=== PATIENT | female | born 1950 | race Native Hawaiian/Other Pacific Islander ===

== ENCOUNTER 2016-12-13 11:58 | Outpatient (CLI) | payer OTHER ==
[~2016-12-13 11:58] MED LIST: ALLO100T22 PO; ALLO300T23 PO; ALPR0.2566; AMBIEN5 MG PO; AMLO2.5T PO; AMLO5TAB PO; ASPIRIN81 M1 PO; CLOBETASOL0.054 TOP; DIOVAN320 MG PO; DIPHEN/ATROP2.5 MG PO; GLIP10TA55 PO; HYDR25TA15 PO; LEXAPRO10 MG PO; LOMOTIL2.5 MG PO; LORTAB1 TAB PO; METF500T PO; NEXIUM40 M1; NEXIUM40 M1 PO; PANT40TA PO; PRISTIQ50 MG PO; PROMETHAZINE25 MG PO; PYRIDIUM200 MG PO; TIZA4TAB5 PO; TRAM50TA PO; TRAMADOL HCL100 M1 PO; ZOLP10TA2; ZOLP10TA2 PO; [UNRECOGNIZED DRUG - OTHER] PO
[2016-12-13 12:34] LABS: POTASSIUM 3.3 mmol/L (3.6-5.2); SODIUM 140 mmol/L (136-145)
== END 2016-12-13 19:27 | disposition home or self-care (01) ==
LOC: LABW 11:58
PROVIDERS: Student in an Organized Health Care Education/Training Program
DX: E87.6 Hypokalemia (principal)
CPT/HCPCS: 36415; 80053

== ENCOUNTER 2017-01-24 16:43 | Outpatient (CLI) | payer OTHER | END 2017-01-24 19:21 | disposition home or self-care (01) | LOC: RAD 16:43 | DX: M25.532 Pain in left wrist (principal) ==

== ENCOUNTER 2017-02-07 14:49 | Outpatient (CLI) | payer OTHER ==
[2017-02-07 14:55] VITALS: BP 137/77; TEMP 98.2
== END 2017-02-07 16:55 | disposition home or self-care (01) ==
LOC: INF 14:49
DX: N39.0 Urinary tract infection, site not specified (principal); K75.81 Nonalcoholic steatohepatitis (NASH)
CPT/HCPCS: 96372; J1580

== ENCOUNTER 2017-02-08 13:50 | Outpatient (CLI) | payer OTHER ==
[~2017-02-08] VITALS: Ht 160 cm; Wt 80.7 kg
[2017-02-08 14:28] VITALS: BP 125/62; TEMP 98.9
[2017-02-08 14:52] LABS: POTASSIUM 3.7 mmol/L (3.6-5.2); SODIUM 142 mmol/L (136-145)
[2017-02-08 15:01] LABS: PLATELET COUNT 109 K/uL (152-353)
== END 2017-02-08 15:04 | disposition home or self-care (01) ==
LOC: INF 13:50
PROVIDERS: Internal Medicine
DX: N39.0 Urinary tract infection, site not specified (principal); K75.81 Nonalcoholic steatohepatitis (NASH)
CPT/HCPCS: 36415; 80053; 82784; 83516; 85027; 85610; 86039; 86706; 86803; 87340; 96372; J1580

== ENCOUNTER 2017-02-09 14:52 | Outpatient (CLI) | payer OTHER ==
[~2017-02-09] VITALS: Ht 160 cm; Wt 80.7 kg
[2017-02-09 14:58] VITALS: BP 137/72; TEMP 98.7
== END 2017-02-09 19:23 | disposition home or self-care (01) ==
LOC: INF 14:52
DX: N39.0 Urinary tract infection, site not specified (principal)
CPT/HCPCS: 96372; J1580

== ENCOUNTER 2017-02-24 15:03 | Outpatient (CLI) | payer OTHER ==
[~2017-02-24] VITALS: Ht 160 cm; Wt 80.7 kg
[2017-02-24 14:58] VITALS: BP 145/71; TEMP 98.3
== END 2017-02-24 17:00 | disposition home or self-care (01) ==
LOC: INF 15:03
DX: N10 Acute pyelonephritis (principal); N39.0 Urinary tract infection, site not specified
CPT/HCPCS: 96372; J1580

== ENCOUNTER 2017-02-25 11:31 | Outpatient (CLI) | payer OTHER ==
[~2017-02-25] VITALS: Ht 160 cm; Wt 80.7 kg
[2017-02-25 11:47] VITALS: BP 118/70; TEMP 98.3
== END 2017-02-25 19:28 | disposition home or self-care (01) ==
LOC: INF 11:31
DX: N10 Acute pyelonephritis (principal); N39.0 Urinary tract infection, site not specified
CPT/HCPCS: 96372; J1580

== ENCOUNTER 2017-02-26 17:58 | Outpatient (CLI) | payer OTHER | END 2017-02-26 19:02 | disposition home or self-care (01) | LOC: INF 17:58 | DX: N10 Acute pyelonephritis (principal); N39.0 Urinary tract infection, site not specified | CPT/HCPCS: 96372; J1580 ==

== ENCOUNTER 2017-02-27 13:14 | Outpatient (CLI) | payer OTHER | END 2017-02-27 19:07 | disposition home or self-care (01) | LOC: INF 13:14 | DX: N10 Acute pyelonephritis (principal); N39.0 Urinary tract infection, site not specified | CPT/HCPCS: 96372; J1580 ==

== ENCOUNTER 2017-02-28 15:45 | Outpatient (CLI) | payer OTHER ==
[2017-02-28 16:05] VITALS: BP 144/69; TEMP 98
== END 2017-02-28 16:00 | disposition home or self-care (01) ==
LOC: INF 15:45
DX: N39.0 Urinary tract infection, site not specified (principal); N12 Tubulo-interstitial nephritis, not specified as acute or chronic
CPT/HCPCS: 96372; J1580

== ENCOUNTER 2017-03-30 12:21 | Outpatient (CLI) | payer OTHER ==
[2017-03-30 12:48] LABS: PLATELET COUNT 123 K/uL (152-353)
[2017-03-30 13:18] LABS: POTASSIUM 4.6 mmol/L (3.6-5.2)
== END 2017-03-30 13:30 | disposition home or self-care (01) ==
LOC: LABW 12:21
PROVIDERS: Internal Medicine Hematology & Oncology
DX: D64.89 Other specified anemias (principal); R79.0 Abnormal level of blood mineral
CPT/HCPCS: 36415; 80053; 82728; 83540; 83550; 85027

== ENCOUNTER 2017-06-23 14:35 | Outpatient (CLI) | payer OTHER ==
[~2017-06-23] VITALS: Ht 160 cm; Wt 81.6 kg
[2017-06-23 14:50] VITALS: BP 144/77; TEMP 98.4
[2017-06-23 15:11] VITALS: BP 162/83
== END 2017-06-23 15:55 | disposition home or self-care (01) ==
LOC: INF 14:35
DX: N39.0 Urinary tract infection, site not specified (principal)
CPT/HCPCS: 96365; J1580

== ENCOUNTER 2017-06-24 14:23 | Outpatient (CLI) | payer OTHER ==
[~2017-06-24] VITALS: Ht 160 cm; Wt 81.6 kg
== END 2017-06-24 19:11 | disposition home or self-care (01) ==
LOC: INF 14:23
DX: N39.0 Urinary tract infection, site not specified (principal)
CPT/HCPCS: 96365; J1580

== ENCOUNTER 2017-07-05 15:10 | Outpatient (CLI) | payer OTHER ==
[2017-07-05 15:40] LABS: PLATELET COUNT 112 K/uL (152-353)
[2017-07-05 16:11] LABS: POTASSIUM 3.9 mmol/L (3.6-5.2)
== END 2017-07-05 16:10 | disposition home or self-care (01) ==
LOC: LABW 15:10
PROVIDERS: Internal Medicine Hematology & Oncology
DX: N39.0 Urinary tract infection, site not specified (principal); D50.8 Other iron deficiency anemias
CPT/HCPCS: 36415; 80053; 82728; 83540; 83550; 85027; 87077; 87086; 87088; 87186

== ENCOUNTER 2017-07-29 11:46 | Outpatient (CLI) | payer OTHER | END 2017-07-29 19:00 | disposition home or self-care (01) | LOC: US 11:46 | DX: R60.0 Localized edema (principal); R06.09 Other forms of dyspnea ==

== ENCOUNTER 2017-09-04 10:20 | Emergency (ER) | payer OTHER ==
[~2017-09-04] VITALS: Ht 172.7 cm; Wt 81.6 kg
[2017-09-04 10:38] VITALS: BP 131/64; TEMP 98.3
[2017-09-04 11:56] LABS: PLATELET COUNT 115 K/uL (152-353)
[2017-09-04 12:02] LABS: POTASSIUM 3.7 mmol/L (3.6-5.2)
== END 2017-09-04 12:55 | disposition home or self-care (01) ==
LOC: ED 10:20
PROVIDERS: Specialist
DX: S80.11XA Contusion of right lower leg, initial encounter (principal); I83.91 Asymptomatic varicose veins of right lower extremity; I80.3 Phlebitis and thrombophlebitis of lower extremities, unspecified; W18.39XA Other fall on same level, initial encounter; Y92.89 Other specified places as the place of occurrence of the external cause
CPT/HCPCS: 80048; 85027; 96372; 99283; J1885

== ENCOUNTER 2017-10-24 11:43 | Outpatient (CLI) | payer OTHER | END 2017-10-24 20:26 | disposition home or self-care (01) | LOC: INF 11:43 → RAD 11:43 | DX: L03.115 Cellulitis of right lower limb (principal); R60.0 Localized edema; M79.89 Other specified soft tissue disorders ==

== ENCOUNTER 2017-11-15 12:01 | Outpatient (CLI) | payer OTHER ==
[2017-11-15 12:32] LABS: PLATELET COUNT 131 K/uL (152-353)
[2017-11-15 12:55] LABS: POTASSIUM 3.7 mmol/L (3.6-5.2)
== END 2017-11-15 19:56 | disposition home or self-care (01) ==
LOC: LABW 12:01
PROVIDERS: Internal Medicine Hematology & Oncology
DX: D64.89 Other specified anemias (principal); K74.69 Other cirrhosis of liver
CPT/HCPCS: 36415; 80053; 82728; 83540; 83550; 85027

== ENCOUNTER 2018-01-13 09:01 | Inpatient (IN) | payer OTHER ==
[~2018-01-13] VITALS: Ht 160 cm; Wt 83.6 kg
[2018-01-13] VITALS (35 sets, daily range): BP systolic 83–191; BP diastolic 50–101; TEMP 98–98.8; Ht 160 cm; Wt 83.6 kg
[2018-01-13 10:10] LABS: PLATELET COUNT 133 K/uL (152-353)
[2018-01-13 10:18] LABS: POTASSIUM 3.4 mmol/L (3.6-5.2); SODIUM 140 mmol/L (136-145)
[2018-01-13] MEDS ORDERED: PRISTIQ25 MG PO (17:52)
[2018-01-13] MEDS ORDERED: KP FOLIC ACID1 MG PO (17:53)
[2018-01-13] MEDS ORDERED: POTASSIUM CHLO20 ME1 PO (17:56)
[2018-01-13] MEDS ORDERED: KLOR-CON M1010 MEQ PO (18:10)
[2018-01-13] MEDS ORDERED: ALLO300T23 PO (18:12)
[2018-01-13] MEDS ORDERED: ELIQUIS5 MG PO (18:14)
[2018-01-13] MEDS ORDERED: VITAMIN D2400 UNIT OR (18:16)
--- NOTE | 2018-01-13 23:53 | NUR ---
01-13-181999 PT ASSESSMENT COMPLETE. ASSISTED PT TO [facility] [place],SHE HAS A LARGE, LOOSE, BROWN BM AND VOIDS. PT ASSISTED BACK INTO BED. SHE REMAINS IN A FIB, WITH CARDIZEM 5 MG/HR INFUSING WITH NS AT 50 CC/ HR. PT DENIES PAIN AT THIS TIME.
[2018-01-14] VITALS (70 sets, daily range): BP systolic 67–168; BP diastolic 11–109; TEMP 97.6–98.4
--- NOTE | 2018-01-14 00:05 | NUR ---
2229 PT GAVE AMBIEN 10 MG TAB PO, PER HER REQUEST, FOR INSOMNIA. PT SAYS THAT SHE TAKES THIS AT HOME AT HS. ORDER WAS OBTAINED FROM DR. ZAPATA, JUST EARLIER. TYLENOL 650 MG TAB PO GIVEN FOR HEADACHE, PER PT REQUEST. WILL EVAL FOR RELIEF. SH.
--- NOTE | 2018-01-14 00:14 | NUR ---
01-13-18 1952 [place] [facility] [place] AND HAS ANOTHER LARGE, LOOSE, BM. SHE WET HER UNDERWEAR AND NURSE ASSISTED HER TO PUT ON AN ADULT DEPENDS. ASSISTED HER BACK TO BED WITH NO PROBLEM. PT SAYS THAT HER HEADACHE IS COMPLETELY GONE. SHE HAD ALREADY BEEN ASLEEP SINCE TAKING THE AMBIEN. WILL CONT.. TO MONITOR. SH
--- NOTE | 2018-01-14 03:24 | NUR ---
PT SLEEPING QUIETLY, SHE REMAINES IN A FIB. CARDIZEM REMAINS AT THE SAME 5 MG/HR RUNNING IN WITH NS AT 50 CC HR. NO DISTRESS NOTED. PT REMAINS IN A FIB WITH AN OCCASSIONAL P WAVE. SH.
[2018-01-14 06:47] LABS: PLATELET COUNT 107 K/uL (152-353)
--- NOTE | 2018-01-14 07:00 | NUR ---
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 NO DISTRESS NOTED. SH
--- NOTE | 2018-01-14 07:03 | NUR ---
0500 PT CONT WITH CARDIZEM GTT AT 5 MG/HR AND NS AT 50 CC/HR, AND CONT. TO BE IN AFIB. WILL CONT TO MONITOR SH. 0600 NURSE ATTEMPT LAB DRAW X 2 WITHOUT SUCCESS. LAB TO COME DRAW. PT IS DOING WELL,RESTED WELL LAST NIGHT. SHE DENIES PAIN AT THIS TIME. SH.
--- NOTE | 2018-01-14 20:00 | NUR ---
PT IN BED RESTING WITH FAMILY AT BEDSIDE. PT DOES NOT SHOW ANY SIGNS OR SYMPTOMS OF DISTRESS. WILL CONTINUE TO MONITOR.
--- NOTE | 2018-01-14 22:00 | NUR ---
PT UP TO BEDSIDE COMMODE. PT PUT OUT 600ML OF URINE AT THIS TIME. NO SIGNS OR SYMPTOMS OF DISTRESS NOTED. WILL CONTINUE TO MONITOR.
[2018-01-15] VITALS (13 sets, daily range): BP systolic 130–168; BP diastolic 77–103; TEMP 98–98.1
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
[2018-01-15 06:07] LABS: PLATELET COUNT 111 K/uL (152-353)
[2018-01-15 06:43] LABS: POTASSIUM 2.9 mmol/L (3.6-5.2)
--- NOTE | 2018-01-15 08:30 | NUR ---
PT SITTING UP ON BSC, ASSISTED TO CHANGE PJ'S & DEPENDS, DENIES PAIN
--- NOTE | 2018-01-15 09:40 | NUR ---
DR ZAPATA IN TO SEE PT.PT TO BE TRANSFERRED TO THE [facility].
--- NOTE | 2018-01-15 13:00 | NUR ---
FAMILY IN TO VISIT. PT SITTING UP IN BED,STATES' I FEEL BETTER'.
--- NOTE | 2018-01-15 14:50 | NUR ---
REPORT CALLED TO ROSY CORDOBA RN ON MED/SURG FLOOR. SHE IS MADE AWARE OF PATIENT STATUS.
--- NOTE | 2018-01-15 15:00 | NUR ---
PT MOVED FROM PCU2 TO MED SURG ROOM 1109 VIA WC. PT TOLERATED WELL.
--- NOTE | 2018-01-15 15:00 | NUR ---
RECEIVED Pt. TO ROOM 1109 VIA W/C
[2018-01-16] VITALS: BP 143/73; TEMP 99.2
[2018-01-16 04:00] VITALS: BP 155/74; TEMP 99.1
[2018-01-16 05:34] LABS: PLATELET COUNT 106 K/uL (152-353)
[2018-01-16 05:47] LABS: POTASSIUM 3.2 mmol/L (3.6-5.2)
[2018-01-16 08:00] VITALS: BP 152/79; TEMP 97.9
[2018-01-16 11:59] VITALS: BP 144/79; TEMP 98.2
[2018-01-16] MEDS ORDERED: CIPRO500 MG PO (14:08)
--- NOTE | 2018-01-16 14:59 | NUR ---
PT'S IV D/C'D. TELE D/C'D. D/C INSTRUCTIONS GIVEN. PT HAS NO FUTHER QUESTIONS. PT TO MAKE FU WITH PCP (NAYLA DANIEL). PT WHEELED OUT TO HUSBANDS VEHICLE AT THIS TIME VIA W/C. NO PROBLEMS NOTED.
== END 2018-01-16 15:00 | disposition home or self-care (01) | DRG 308 ==
LOC: ED 09:01 → MED/SURG 11:30 → ICU 11:30 → MED/SURG 01-15 15:00 → ICU 01-15 15:00 → MED/SURG 01-16 15:00
PROVIDERS: Nurse Practitioner Family; ADMIT Emergency Medicine
DX: I48.91 Unspecified atrial fibrillation (principal); I50.31 Acute diastolic (congestive) heart failure; N39.0 Urinary tract infection, site not specified; D64.89 Other specified anemias; E87.6 Hypokalemia; E83.51 Hypocalcemia; B96.1 Klebsiella pneumoniae [K. pneumoniae] as the cause of diseases classified elsewhere
CPT/HCPCS: 36415; 80053; 81000; 82150; 82550; 82948; 82962; 83690; 83735; 83880; 84484; 85027; 85379; 87077; 87086; 87088; 87186; 93005; 94760; 96365; 96366; 96367; 96375; 96376; 99284; J0150; J0153; J0744; J1940; J2175; J2405; J2543; J2550; J3475; J3490

== ENCOUNTER 2018-02-01 14:31 | Outpatient (CLI) | payer OTHER ==
[~2018-02-01] VITALS: Ht 160 cm; Wt 83.5 kg
[~2018-02-01 14:31] MED LIST changes: +CIPRO500 MG PO; +ELIQUIS5 MG PO; +KLOR-CON M1010 MEQ PO; +KP FOLIC ACID1 MG PO; +POTASSIUM CHLO20 ME1 PO; +PRISTIQ25 MG PO; +VITAMIN D2400 UNIT OR
== END 2018-02-01 22:06 | disposition home or self-care (01) ==
LOC: INF 14:31
DX: N39.0 Urinary tract infection, site not specified (principal)
CPT/HCPCS: 96365; J1580

== ENCOUNTER 2018-02-02 14:24 | Outpatient (CLI) | payer OTHER ==
[~2018-02-02] VITALS: Ht 160 cm; Wt 83.5 kg
== END 2018-02-02 23:38 | disposition home or self-care (01) ==
LOC: INF 14:24
DX: N39.0 Urinary tract infection, site not specified (principal)
CPT/HCPCS: 96365; J1580

== ENCOUNTER 2018-02-03 12:03 | Outpatient (CLI) | payer OTHER ==
[~2018-02-03] VITALS: Ht 160 cm; Wt 83.5 kg
== END 2018-02-03 22:38 | disposition home or self-care (01) ==
LOC: INF 12:03
DX: N39.0 Urinary tract infection, site not specified (principal)
CPT/HCPCS: 96365; J1580

== ENCOUNTER 2018-02-19 13:16 | Outpatient (CLI) | payer OTHER | END 2018-02-19 21:10 | disposition home or self-care (01) | LOC: INF 13:16 | DX: N39.0 Urinary tract infection, site not specified (principal) | CPT/HCPCS: 96372; J0696 ==

== ENCOUNTER 2018-02-20 15:19 | Outpatient (CLI) | payer OTHER | END 2018-02-20 22:09 | disposition home or self-care (01) | LOC: INF 15:19 | DX: N39.0 Urinary tract infection, site not specified (principal) | CPT/HCPCS: 96372; J0696 ==

== ENCOUNTER 2018-02-21 11:43 | Outpatient (CLI) | payer OTHER ==
[~2018-02-21] VITALS: Ht 160 cm; Wt 83.0 kg
[2018-02-21 11:50] VITALS: BP 129/76; TEMP 98.4
== END 2018-02-21 22:24 | disposition home or self-care (01) ==
LOC: INF 11:43
DX: N39.0 Urinary tract infection, site not specified (principal)
CPT/HCPCS: 96372; J0696

== ENCOUNTER 2018-02-27 10:34 | Outpatient (CLI) | payer OTHER ==
[2018-02-27 11:28] LABS: POTASSIUM 4.5 mmol/L (3.6-5.2)
== END 2018-02-27 19:49 | disposition home or self-care (01) ==
LOC: LABW 10:34
PROVIDERS: Internal Medicine Interventional Cardiology
DX: I10 Essential (primary) hypertension (principal); I87.2 Venous insufficiency (chronic) (peripheral); Z95.1 Presence of aortocoronary bypass graft; R06.02 Shortness of breath; I42.0 Dilated cardiomyopathy; I48.1 Persistent atrial fibrillation
CPT/HCPCS: 36415; 80053; 85610

== ENCOUNTER 2018-03-28 14:04 | Outpatient (CLI) | payer OTHER ==
[2018-03-28 14:27] LABS: PLATELET COUNT 113 K/uL (152-353)
[2018-03-28 14:36] LABS: POTASSIUM 5.6 mmol/L (3.6-5.2)
== END 2018-03-28 19:12 | disposition home or self-care (01) ==
LOC: LABW 14:04
PROVIDERS: Internal Medicine Cardiovascular Disease
DX: Q21.1 Atrial septal defect (principal); I10 Essential (primary) hypertension; I87.2 Venous insufficiency (chronic) (peripheral); R06.02 Shortness of breath; R94.30 Abnormal result of cardiovascular function study, unspecified
CPT/HCPCS: 36415; 80048; 85027; 85610

== ENCOUNTER 2018-04-02 16:14 | Outpatient (CLI) | payer OTHER | END 2018-04-02 22:37 | disposition home or self-care (01) | LOC: INF 16:14 | DX: N39.0 Urinary tract infection, site not specified (principal) | CPT/HCPCS: 96372; J0696 ==

== ENCOUNTER 2018-04-04 15:22 | Outpatient (CLI) | payer OTHER ==
[2018-04-04 16:38] LABS: POTASSIUM 5.2 mmol/L (3.6-5.2)
== END 2018-04-04 23:51 | disposition home or self-care (01) ==
LOC: INF 15:22
DX: R79.89 Other specified abnormal findings of blood chemistry (principal); N18.9 Chronic kidney disease, unspecified; Z79.899 Other long term (current) drug therapy; N39.0 Urinary tract infection, site not specified
CPT/HCPCS: 36415; 80048; 83735; 84100; 96372; J0696

== ENCOUNTER 2018-04-08 10:12 | Outpatient (CLI) | payer OTHER | END 2018-04-08 12:00 | disposition home or self-care (01) | LOC: INF 10:12 | DX: N39.0 Urinary tract infection, site not specified (principal) | CPT/HCPCS: 96365; J1580 ==

== ENCOUNTER 2018-04-09 13:34 | Outpatient (CLI) | payer OTHER | END 2018-04-09 15:00 | disposition home or self-care (01) | LOC: INF 13:34 | DX: N39.0 Urinary tract infection, site not specified (principal) | CPT/HCPCS: 96365; J1580 ==

== ENCOUNTER 2018-04-10 10:50 | Outpatient (CLI) | payer OTHER ==
[2018-04-10 11:23] LABS: POTASSIUM 5.9 mmol/L (3.6-5.2)
== END 2018-04-10 20:27 | disposition home or self-care (01) ==
LOC: INF 10:50
PROVIDERS: Family Medicine
DX: Z79.899 Other long term (current) drug therapy (principal); N18.9 Chronic kidney disease, unspecified
CPT/HCPCS: 36415; 80048; 83735; 84100; 96365; J1580

== ENCOUNTER 2018-04-28 08:56 | Outpatient (CLI) | payer OTHER ==
[~2018-04-28] VITALS: Ht 160 cm; Wt 81.6 kg
== END 2018-04-28 19:51 | disposition home or self-care (01) ==
LOC: INF 08:56
DX: N39.0 Urinary tract infection, site not specified (principal)
CPT/HCPCS: 96365; J1580

== ENCOUNTER 2018-04-29 09:31 | Outpatient (CLI) | payer OTHER | END 2018-04-29 21:31 | disposition home or self-care (01) | LOC: INF 09:31 | DX: N39.0 Urinary tract infection, site not specified (principal) | CPT/HCPCS: 96365; J1580 ==

== ENCOUNTER 2018-04-30 13:21 | Outpatient (CLI) | payer OTHER | END 2018-04-30 21:08 | disposition home or self-care (01) | LOC: INF 13:21 | DX: N39.0 Urinary tract infection, site not specified (principal) | CPT/HCPCS: 96365; J1580 ==

== ENCOUNTER 2018-05-10 19:40 | Outpatient (CLI) | payer OTHER | END 2018-05-10 21:00 | disposition home or self-care (01) | LOC: LABW 19:40 | DX: N39.0 Urinary tract infection, site not specified (principal) | CPT/HCPCS: 87077; 87086; 87088; 87186 ==

== ENCOUNTER 2018-05-25 11:22 | Outpatient (CLI) | payer OTHER ==
[~2018-05-25] VITALS: Ht 160 cm; Wt 81.6 kg
== END 2018-05-25 23:22 | disposition home or self-care (01) ==
LOC: INF 11:22
DX: N39.0 Urinary tract infection, site not specified (principal)
CPT/HCPCS: 96365; J1580

== ENCOUNTER 2018-05-26 14:07 | Outpatient (CLI) | payer OTHER | END 2018-05-26 23:26 | disposition home or self-care (01) | LOC: INF 14:07 | DX: N39.0 Urinary tract infection, site not specified (principal) | CPT/HCPCS: 96365; J1335 ==

== ENCOUNTER 2018-05-27 11:19 | Outpatient (CLI) | payer OTHER | END 2018-05-27 23:20 | disposition home or self-care (01) | LOC: INF 11:19 | DX: N39.0 Urinary tract infection, site not specified (principal) | CPT/HCPCS: 96365; J1335 ==

== ENCOUNTER 2018-06-06 11:37 | Outpatient (CLI) | payer OTHER ==
[2018-06-06 12:54] LABS: PLATELET COUNT 85 K/uL (152-353)
[2018-06-06 13:02] LABS: POTASSIUM 4.2 mmol/L (3.6-5.2)
== END 2018-06-06 22:29 | disposition home or self-care (01) ==
LOC: LABW 11:37
PROVIDERS: Nurse Practitioner Family
DX: D64.9 Anemia, unspecified (principal); D69.6 Thrombocytopenia, unspecified
CPT/HCPCS: 36415; 80053; 82248; 82728; 83540; 83550; 85027

== ENCOUNTER 2018-07-21 12:16 | Outpatient (CLI) | payer OTHER ==
[2018-07-21 12:45] LABS: PLATELET COUNT 129 K/uL (152-353)
[2018-07-21 13:11] LABS: POTASSIUM 4.6 mmol/L (3.6-5.2); SODIUM 139 mmol/L (136-145)
== END 2018-07-21 21:50 | disposition home or self-care (01) ==
LOC: LABW 12:16
PROVIDERS: Internal Medicine
DX: N18.3 Chronic kidney disease, stage 3 (moderate) (principal); I12.9 Hypertensive chronic kidney disease with stage 1 through stage 4 chronic kidney disease, or unspecified chronic kidney disease; I48.2 Chronic atrial fibrillation; E53.1 Pyridoxine deficiency; E11.9 Type 2 diabetes mellitus without complications; D64.9 Anemia, unspecified; M25.50 Pain in unspecified joint; R82.90 Unspecified abnormal findings in urine
CPT/HCPCS: 36415; 80053; 81000; 82043; 82306; 82330; 82552; 82570; 82607; 82728; 82746; 83036; 83540; 83550; 83735; 83970; 84100; 84155; 84439; 84443; 84550; 85027; 85651; 86430; 87077; 87086; 87088; 87185; 87186

== ENCOUNTER 2018-08-03 13:56 | Outpatient (CLI) | payer OTHER ==
[~2018-08-03] VITALS: Ht 160 cm; Wt 81.6 kg
== END 2018-08-03 19:37 | disposition home or self-care (01) ==
LOC: INF 13:56
DX: N39.0 Urinary tract infection, site not specified (principal)
CPT/HCPCS: 96365; J3370

== ENCOUNTER 2018-08-05 12:38 | Outpatient (CLI) | payer OTHER | END 2018-08-05 19:59 | disposition home or self-care (01) | LOC: INF 12:38 | DX: N39.0 Urinary tract infection, site not specified (principal) | CPT/HCPCS: 96365; J3370 ==

== ENCOUNTER 2018-08-07 14:52 | Outpatient (CLI) | payer OTHER | END 2018-08-07 19:52 | disposition home or self-care (01) | LOC: INF 14:52 | DX: N39.0 Urinary tract infection, site not specified (principal) | CPT/HCPCS: 96365; J3370 ==

== ENCOUNTER 2019-01-04 15:31 | Outpatient (CLI) | payer OTHER ==
[2019-01-04 15:50] LABS: PLATELET COUNT 73 K/uL (152-353)
[2019-01-04 16:10] LABS: POTASSIUM 3.9 mmol/L (3.6-5.2)
== END 2019-01-04 20:38 | disposition home or self-care (01) ==
LOC: LABW 15:31
PROVIDERS: Nurse Practitioner Family
DX: D64.9 Anemia, unspecified (principal)
CPT/HCPCS: 36415; 80053; 82728; 83540; 83550; 85027

== ENCOUNTER 2019-01-29 12:56 | Outpatient (CLI) | payer OTHER ==
[2019-01-29] MEDS ORDERED: CLINDAMYCIN HY150 MG PO (14:34)
[2019-01-29] MEDS ORDERED: PREDNISONE20 MG PO (14:34)
[2019-01-29] MEDS ORDERED: OXYC5TAB53 PO (14:34)
== END 2019-01-29 13:12 | disposition short-term general hospital (02) ==
LOC: AMB 12:56
DX: M79.671 Pain in right foot (principal); M10.9 Gout, unspecified
CPT/HCPCS: A0425; A0427

== ENCOUNTER 2019-01-29 13:17 | Emergency (ER) | payer OTHER ==
[~2019-01-29] VITALS: Ht 160 cm; Wt 81.6 kg
[2019-01-29 13:59] LABS: PLATELET COUNT 97 K/uL (152-353)
[2019-01-29 14:11] LABS: POTASSIUM 4.3 mmol/L (3.6-5.2)
[2019-01-29] MEDS ORDERED: CLINDAMYCIN HY150 MG PO (14:34)
[2019-01-29] MEDS ORDERED: OXYC5TAB53 PO (14:34)
[2019-01-29] MEDS ORDERED: PREDNISONE20 MG PO (14:34)
[2019-01-29 15:50] VITALS: BP 166/69; TEMP 98.1
== END 2019-01-29 15:50 | disposition home or self-care (01) ==
LOC: ED 13:17
PROVIDERS: Student in an Organized Health Care Education/Training Program
DX: L03.115 Cellulitis of right lower limb (principal); M10.9 Gout, unspecified
CPT/HCPCS: 80053; 82550; 84550; 85027; 99283

== ENCOUNTER 2019-08-18 15:22 | Outpatient (CLI) | payer OTHER ==
[~2019-08-18 15:22] MED LIST changes: +CLINDAMYCIN HY150 MG PO; +OXYC5TAB53 PO; +PREDNISONE20 MG PO
== END 2019-08-18 21:51 | disposition home or self-care (01) ==
LOC: INF 15:22
DX: N39.0 Urinary tract infection, site not specified (principal)
CPT/HCPCS: 96372

== ENCOUNTER 2019-08-30 15:19 | Outpatient (CLI) | payer OTHER ==
[2019-08-30 15:51] LABS: PLATELET COUNT 73 K/uL (152-353)
[2019-08-30 16:14] LABS: POTASSIUM 4.1 mmol/L (3.6-5.2)
== END 2019-08-30 20:20 | disposition home or self-care (01) ==
LOC: LABW 15:19
PROVIDERS: Internal Medicine Hematology & Oncology
DX: C83.80 Other non-follicular lymphoma, unspecified site (principal)
CPT/HCPCS: 36415; 80053; 83615; 85027

== ENCOUNTER 2019-11-08 18:19 | Outpatient (CLI) | payer OTHER | END 2019-11-08 19:16 | disposition home or self-care (01) | LOC: LAB 18:19 | DX: N39.0 Urinary tract infection, site not specified (principal) | CPT/HCPCS: 81000; 87077; 87086; 87088; 87186 ==

== ENCOUNTER 2019-11-19 12:31 | Outpatient (CLI) | payer OTHER ==
[2019-11-19 13:16] LABS: PLATELET COUNT 71 K/uL (152-353)
[2019-11-19 13:19] LABS: POTASSIUM 2.8 mmol/L (3.6-5.2)
== END 2019-11-19 19:20 | disposition home or self-care (01) ==
LOC: LAB 12:31
PROVIDERS: Nurse Practitioner Family
DX: A40.9 Streptococcal sepsis, unspecified (principal)
CPT/HCPCS: 80048; 85027

== ENCOUNTER 2019-11-26 12:48 | Outpatient (CLI) | payer OTHER ==
[2019-11-26 13:09] LABS: PLATELET COUNT 50 K/uL (152-353)
== END 2019-11-26 19:24 | disposition home or self-care (01) ==
LOC: LAB 12:48
PROVIDERS: Nurse Practitioner Family
DX: A40.8 Other streptococcal sepsis (principal); D61.810 Antineoplastic chemotherapy induced pancytopenia; E11.9 Type 2 diabetes mellitus without complications; N39.0 Urinary tract infection, site not specified
CPT/HCPCS: 80053; 85027

== ENCOUNTER 2019-12-03 14:24 | Outpatient (CLI) | payer OTHER ==
[2019-12-03 14:43] LABS: POTASSIUM 3.5 mmol/L (3.6-5.2)
[2019-12-03 15:05] LABS: PLATELET COUNT 69 K/uL (152-353)
== END 2019-12-03 23:10 | disposition home or self-care (01) ==
LOC: LAB 14:24
PROVIDERS: Nurse Practitioner Family
DX: A40.8 Other streptococcal sepsis (principal)
CPT/HCPCS: 80053; 85007; 85027

== ENCOUNTER 2019-12-11 10:03 | Outpatient (CLI) | payer OTHER | END 2019-12-11 20:37 | disposition home or self-care (01) | LOC: US 10:03 | DX: N64.4 Mastodynia (principal) ==